=== PATIENT | male | born 1965 | race African-American/Black ===

== ENCOUNTER 2022-10-05 18:58 | Emergency (ER) | payer OTHER ==
[~2022-10-05] VITALS: Ht 185.4 cm; Wt 127.0 kg
[2022-10-05 19:15] VITALS: BP 124/94; PULSE 84; RESP 17; TEMP 98.1; O2SAT 97
--- NOTE | 2022-10-05 19:18 | NUR ---
to lobby a/w bed ambulatory
[2022-10-05] MEDS ORDERED: IBUPROFEN 600 MG TAB PO ONE (20:55)
--- NOTE | 2022-10-05 21:12 | NUR ---
PT RETURN FROM RADIOLOGY TO ER LOBBY
[2022-10-05] MEDS ORDERED: CYCL-711 PO (21:37)
[2022-10-05] MEDS ORDERED: LID5T TP (21:37)
[2022-10-05] MEDS ORDERED: IBUP-2213 PO (21:37)
--- NOTE | 2022-10-05 21:50 | NUR ---
Patient discharged with v/s stable. Written and verbal after care instructions given and explained. Patient alert, oriented and verbalized understanding of instructions. Ambulatory with steady gait. All questions addressed prior to discharge. ID band removed. Patient advised to follow up with PMD. Rx of FLEXERIL, MOTRIN,AND LIDODERM given. Patient educated on indication of medication including possible reaction and side effects. Opportunity to ask questions provided and answered.
[2022-10-05 21:55] VITALS: O2SAT 97
== END 2022-10-05 21:50 | disposition home or self-care (01) ==
LOC: MED 18:58
DX: S39.012A Strain of muscle, fascia and tendon of lower back, initial encounter (principal); Z79.899 Other long term (current) drug therapy; V49.88XA Car occupant (driver) (passenger) injured in other specified transport accidents, initial encounter; Y93.89 Activity, other specified; Y92.89 Other specified places as the place of occurrence of the external cause; Y99.8 Other external cause status
CPT/HCPCS: 72110; 99283